=== PATIENT | male | born 1970 | race Caucasian/White ===

== ENCOUNTER 2018-09-09 20:51 | Emergency (ER) | payer BC, MEDICAID ==
[~2018-09-09] VITALS: Ht 177.8 cm; Wt 102.4 kg
[~2018-09-09 20:51] MED LIST: AMLO5TAB4 PO; ASPI-1159 PO; CARV12.545 PO; CHOL100046 PO; CLOP75TA33 PO; COR3 PO; EPINEPHRINE 0.1MG/ML (1:10,000) 10ML SYR ONE; ETOMIDATE 2MG/ML 10ML VIAL IV ONE; HYDR-4135 PO; LOSA100T14 PO; SODIUM BICARBONATE 8.4% 1 MEQ/ML 50ML SYR IV ONE; SODIUM CHLORIDE 0.9% 10ML VIAL ONE; TRAZ-212 PO; VECURONIUM BROMIDE 10 MG/VIAL IV ONE
[2018-09-09] MEDS ORDERED: SODIUM CHLORIDE 0.9% 1,000 ML IV ONE (21:04)
[2018-09-09] MEDS ORDERED: ONDANSETRON HCL 4MG/2ML INJ IV STA (21:04)
[2018-09-09] MEDS ORDERED: LEVETIRACETAM 500MG PREMIX 100 ML IV ONE (21:15)
[2018-09-09 21:25] LABS: BASOPHILS % 0.5 % (0.0-2.0); HEMATOCRIT. 47.7 % (42.0-52.0); HEMOGLOBIN. 16.1 g/dL (14.0-18.0); LYMPHOCYTES % 12.6 % (20.0-50.0); MEAN CORPUSCULAR HEMOGLOBIN 32.5 pg (28.0-32.0); MEAN CORPUSCULAR VOLUME 96.2 fL (80.0-94.0); MEAN PLATELET VOLUME 8.8 fl (7.4-10.4); MONOCYTES % 3.5 % (2.0-8.0); NEUTROPHILS % 82.4 % (40.0-76.0); PLATELET 296 x1000/uL (130-400); RED BLOOD CELL COUNT 4.96 mill/uL (4.7-6.1)
[2018-09-09 21:31] LABS: CHLORIDE 99 mEq/L (98-107); INR 1.2; PROTHROMBIN TIME 11.8 sec (9.1-11.1)
[2018-09-09 21:37] LABS: ETHANOL BLOOD < 10 mg/dL
[2018-09-09 21:41] LABS: CREATINE KINASE 216 IU/L (39-308); CREATINE KINASE MB FRACTION 4.3 ng/mL (0.5-3.6)
[2018-09-09 21:49] VITALS: BP 0/0
[2018-09-09] MEDS ORDERED: EPINEPHRINE 0.1MG/ML (1:10,000) 10ML SYR ONE (21:53)
[2018-09-09 21:59] LABS: LDL CHOLESTEROL 52 mg/dL (5-100)
[2018-09-09 22:03] LABS: CARBAMAZEPINE < 0.5 ug/mL (4-12); PHENOBARBITAL < 2.1 ug/mL (15.0-40.0)
== END 2018-09-09 21:52 | disposition expired ==
LOC: ER 20:51 → CANBEDREQ 09-10 09:30
DX: I46.9 Cardiac arrest, cause unspecified (principal); I11.0 Hypertensive heart disease with heart failure; I50.9 Heart failure, unspecified; R56.9 Unspecified convulsions; Z79.82 Long term (current) use of aspirin; Z86.73 Personal history of transient ischemic attack (TIA), and cerebral infarction without residual deficits
CPT/HCPCS: 31500; 36415; 70450; 80053; 80156; 80165; 80184; 80185; 82550; 82553; 83605; 83690; 83721; 83880; 84145; 84443; 84484; 85025; 85610; 87040; 87186; 92950; 99285; J3490; J7030